=== PATIENT | male | born 1990 | race Caucasian/White ===

== ENCOUNTER 2020-02-04 12:28 | Emergency (ER) | payer SELFPAY ==
[2020-02-04] MEDS: Aspirin 81 MG Tab.Chew PO ONE ×2 (12:40→13:30)
[2020-02-04 13:09] LABS: CHLORIDE,CL 101 mEq/L (98-106); SODIUM,NA 140 mEq/L (136-145)
--- NOTE | 2020-02-04 13:35 | EDM.PDOC ---
<DeandreHelenRonda D - Last Filed: 02/04/20 13:30> ED HPI GENERAL MEDICAL PROBLEM - General Chief Complaint: Chest Pain Stated Complaint: chest pain Time Seen by Provider: 02/04/20 12:50 Source of Information: Reports: Patient History Limitations: Reports: No Limitations - History of Present Illness INITIAL COMMENTS - FREE TEXT/NARRATIVE: Jackson is a 29 year old who presents to ER with complaints of left anterior chest pain. States has noted a sharp pain in this area every night for the last week with lying down. Feels doesn't note during day as he is active at work. Describes pain as sharp, does not radiate. No associated shortness of breath, diaphoresis or nausea with this. Does lift frequently for his job but no unusual lifting or straining as of late. He denies heartburn. No specific food intolerances. Relates he had reflux when he was younger but does not feel like that now. When he was driving to work this am, felt a flutter sensation in his chest and his left arm was numb so got more concerned. No pain at present. PMH is negative for cardiac disease. Unaware of any family history of same. Duration: Week(s): Location: Reports: Chest Quality: Reports: Sharp, Stabbing Severity: Moderate Improves with: Reports: Other (improves with sitting up) Worsens with: Reports: Other (lying down) Associated Symptoms: Reports: Chest Pain. Denies: Cough, cough w sputum, Fever/ Chills, Loss of Appetite, Nausea/Vomiting, Shortness of Breath, Syncope, Weakness - Related Data Allergies Allergy/AdvReac Type Severity Reaction Status Date / Time No Known Allergies Allergy Verified 02/04/20 12:32 Home Meds: Home Meds . [No Known Home Meds] 02/04/20 [History] Past Medical History Cardiovascular History: Reports: Other (See Below) Other Cardiovascular History: Has a hx of feeling heart palpitations Respiratory History: Reports: None Musculoskeletal History: Reports: Arthritis Neurological History: Reports: Concussion Other Neuro History: Has had about 3-4 concussions - Past Surgical History Cardiovascular Surgical History: Reports: None Respiratory Surgical History: Reports: None GI Surgical History: Reports: Appendectomy Other GI Surgeries/Procedures: Appendectomy at age 11 Social & Family History - Family History Family Medical History: Noncontributory - Tobacco Use Smoking Status *Q: Current Every Day Smoker Years of Tobacco use: 15 Packs/Tins Daily: 0.5 - Caffeine Use Caffeine Use: Reports: Coffee - Recreational Drug Use Recreational Drug Use: No ED ROS GENERAL - Review of Systems Review Of Systems: See Below Constitutional: Denies: Fever, Chills, Malaise, Weakness, Decreased Appetite HEENT: Reports: No Symptoms Respiratory: Denies: Shortness of Breath, Cough Cardiovascular: Reports: Chest Pain. Denies: Edema, Lightheadedness Endocrine: Denies: Fatigue GI/Abdominal: Denies: Abdominal Pain, Nausea, Vomiting : Reports: No Symptoms Musculoskeletal: Reports: No Symptoms Skin: Reports: No Symptoms Neurological: Reports: No Symptoms Psychiatric: Reports: No Symptoms ED EXAM, GENERAL - Physical Exam Exam: See Below Exam Limited By: No Limitations General Appearance: Alert, WD/WN, No Apparent Distress Ears: Normal External Exam, Normal TMs Nose: Normal Inspection, Normal Mucosa, No Blood Throat/Mouth: Normal Inspection, Normal Oropharynx Head: Normocephalic Neck: Normal Inspection, Supple, Non-Tender Respiratory/Chest: No Respiratory Distress, Lungs Clear, Normal Breath Sounds Cardiovascular: Regular Rate, Rhythm GI/Abdominal: Normal Bowel Sounds, Soft, Non-Tender Neurological: Alert, Oriented Skin Exam: Warm, Dry Course - Vital Signs Last Recorded V/S: Last Vital Signs Temp 98.4 F 02/04/20 13:43 Pulse 74 02/04/20 13:43 Resp 19 02/04/20 13:43 BP 126/68 02/04/20 13:43 Pulse Ox 97 02/04/20 13:43 - Orders/Labs/Meds Labs: Laboratory Tests 02/04/20 02/04/20 02/04/20 Range/Units 12:46 12:46 12:46 WBC 10.2 H (5.0-10.0) 10^3/uL RBC 5.16 (4.50-6.00) 10^6/uL Hgb 16.1 (14.0-18.0) g/dL Hct 47.1 (40.0-54.0) % MCV 91.3 (82.0-94.0) fL MCH 31.2 (27.0-32.0) pg MCHC 34.2 (33.0-38.0) g/dL RDW Coeff of Nieves 12.9 (11.0-15.0) % Plt Count 160 (150-400) 10^3/uL Neut % (Auto) 58.1 (35-85) % Lymph % (Auto) 32.4 (10-55) % Mellette % (Auto) 5.8 (0-16) % Eos % (Auto) 3.3 (0-5) % Baso % (Auto) 0.4 (0-3) % Neut # (Auto) 5.93 (1.80-7.00) 10^3/uL Lymph # (Auto) 3.31 (1.00-4.80) 10^3/uL Mellette # (Auto) 0.59 (0.00-0.80) 10^3/uL Eos # (Auto) 0.34 (0.00-0.45) 10^3/uL Baso # (Auto) 0.04 10^3/uL PT 11.0 (9.7-12.3) SEC INR 1.07 (0.92-1.18) Sodium 140 (136-145) mEq/L Potassium 3.5 (3.5-5.0) mEq/L Chloride 101 (98-106) mEq/L Carbon Dioxide 31 (21-32) mmol/L BUN 13 (7-18) mg/dL Creatinine 0.8 (0.7-1.3) mg/dL Est Cr Clr Drug Dosing 124.46 mL/min Estimated GFR (MDRD) > 60 (>=60) mL/min Glucose 94 (75-99) mg/dL Calcium 8.7 (8.4-10.1) mg/dL Total Bilirubin 0.3 (0.0-1.0) mg/dL AST 26 (15-37) U/L ALT 30 (12-78) U/L Alkaline Phosphatase 74 (46-116) U/L Lactate Dehydrogenase 197 H (100-190) U/L Troponin I < 0.017 (0.00-0.06) ng/mL Total Protein 7.2 (6.4-8.2) g/dL Albumin 4.1 (3.4-5.0) g/dL Lipase 69 L (73-393) U/L Meds: Medications Discontinued Medications Generic Name Dose Route Start Last Admin Trade Name Freq PRN Reason Stop Dose Admin Aspirin 324 mg 02/04/20 13:29 02/04/20 12:40 Aspirin PO 02/04/20 13:30 324 mg ONETIME ONE Administration Departure - Departure Disposition: Home, Self-Care 01 Clinical Impression: Acute nonspecific chest pain with low risk of coronary artery disease Gastroesophageal reflux disease Qualifiers: Esophagitis presence: esophagitis presence not specified Qualified Code(s): K21.9 - Gastro-esophageal reflux disease without esophagitis Instructions: Heartburn, Rvar-sa-Dbit, Nonspecific Chest Pain, Adult, Easy-to- Read Referrals: Ronda Carrera PA [Primary Care Provider] - Forms: ED Department Discharge Additional Instructions: 1) Cardiac work up was negative today. 2) Discussed other causes of chest pain 3) Recommend taking 2 week course of Prilosec. 4) If symptoms persist, recommend reevaluation, as discussed 5) If symptoms worsen or any concerns at all, recommend returning for reevaluation. Sepsis Event Note - Evaluation Sepsis Screening Result: No Definite Risk - Focused Exam Date Exam was Performed: 02/04/20 Time Exam was Performed: 13:30 <Gregorio Ochoa - Last Filed: 02/06/20 07:44> Departure - Departure Time of Disposition: 14:10 - Problem List & Annotations (1) Acute nonspecific chest pain with low risk of coronary artery disease SNOMED Code(s): 087127650 Code(s): R07.9 - CHEST PAIN, UNSPECIFIED; Z91.89 - OTH PERSONAL RISK FACTORS , NOT ELSEWHERE CLASSIFIED Status: Acute (2) Gastroesophageal reflux disease SNOMED Code(s): 039437728 Code(s): K21.9 - GASTRO-ESOPHAGEAL REFLUX DISEASE WITHOUT ESOPHAGITIS Status: Acute Qualifiers: Esophagitis presence: esophagitis presence not specified Qualified Code(s) : K21.9 - Gastro-esophageal reflux disease without esophagitis - Assessment/Plan Plan: Patient was asymptomatic at discharge. Discussed negative cardiac workup and differential etiologies. See additional instructions. Patient discharged home in satisfactory condition.
== END 2020-02-04 14:10 | disposition home or self-care (01) ==
LOC: CC.ED 12:28
DX: K21.9 Gastro-esophageal reflux disease without esophagitis (principal); I25.10 Atherosclerotic heart disease of native coronary artery without angina pectoris; F17.210 Nicotine dependence, cigarettes, uncomplicated
CPT/HCPCS: 36415; 80053; 83615; 83690; 84484; 85025; 85610; 93005; 99285-25; A9270-GY